=== PATIENT | male | born 1975 | race Caucasian/White ===

== ENCOUNTER 2022-05-31 15:30 | Emergency (ER) | payer BC ==
--- NOTE | 2022-05-31 16:31 | ED ---
General Adult HPI - General Chief complaint: Shortness of Breath Stated complaint: High BP-Sent by PCP Time Seen by Provider: 05/31/22 15:51 Source: patient Mode of arrival: ambulatory Limitations: no limitations - History of Present Illness Initial comments: Dictation was produced using [email or web address] dictation software. please excuse any grammatical, word or spelling errors. Chief Complaint: 46-year-old male presents to the emergency department for shortness of breath and hypertension History of Present Illness: Is a 46-year-old male who was sent in by his primary care physician, Dr. Cartagena. Briefly, patient is a 46-year-old male has been dealing with mild dyspnea for the last several days. He went to his primary care physician's office was found to have elevated blood pressure and shortness of breath he was given an IM injection of some sort of steroid and a breathing treatment with improvement of symptoms. Patient's been taking [id number] Primatene to treat his symptoms. He has no chest pain. Denies any orthopnea. Worse when he lies flat. He has no comorbidities. He does not take any medications on a regular basis. The ROS documented in this emergency department record has been reviewed and confirmed by me. Those systems with pertinent positive or negative responses have been documented in the HPI. All other systems are other negative and/or noncontributory. PHYSICAL EXAM: General Impression: Alert and oriented x3, not in acute distress HEENT: Normocephalic atraumatic, extra-ocular movements intact, pupils equal and reactive to light bilaterally, mucous membranes moist. Cardiovascular: Heart regular rate and rhythm Chest: Able to complete full sentences, no retractions, mild rhonchi Abdomen: abdomen soft, non-tender, non-distended, no organomegaly Musculoskeletal: Pulses present and equal in all extremities, no peripheral edema Motor: no focal deficits noted Neurological: CN II-XII grossly intact, no focal motor or sensory deficits noted Skin: Intact with no visualized rashes Psych: Normal affect and mood ED course: 46-year-old male sent in from primary care physician's office for hypertension and shortness of breath. Patient is very well appearing at the bedside. He has no high-risk features. Vital Signs upon arrival are within acceptable limits. Spoke with primary care physician who was concerned the patient is covered positive and that he should have a BNP drawn to evaluate for heart failure. Labs unremarkable. CBC, metabolic panel is unremarkable. BNP negative. For panel by PCR is negative. Chest x-ray shows mild hyperinflation suggesting asthma. Patient observed in emergency department for several hours. Reevaluated at 6:00 PM final be stable medical condition. Patient discharged. Given prescription for pro-air inhaler and Medrol Dosepak. - Related Data Previous Rx's Medication Instructions Recorded Albuterol Sulfate [Proair Hfa] 1 - 2 puff INHALATION Q6HR PRN 05/31/22 #8.5 gm methylPREDNISolone Dose Pack 4 mg PO DIRECTED #21 tab 05/31/22 [Medrol Dose Pack] Allergies Allergy/AdvReac Type Severity Reaction Status Date / Time No Known Allergies Allergy Verified 05/31/22 17:14 Review of Systems ROS Statement: Those systems with pertinent positive or pertinent negative responses have been documented in the HPI. ROS Other: All systems not noted in ROS Statement are negative. Past Medical History Past Medical History: Asthma History of Any Multi-Drug Resistant Organisms: None Reported Past Surgical History: No Surgical Hx Reported Past Psychological History: No Psychological Hx Reported Smoking Status: Former smoker Past Alcohol Use History: Daily Past Drug Use History: None Reported General Exam Limitations: no limitations Course Vital Signs 05/31/22 05/31/22 05/31/22 15:36 17:10 17:20 Temperature 98.0 F Pulse Rate 75 Respiratory 22 Rate Blood Pressure 157/100 159/109 156/95 O2 Sat by Pulse 99 Oximetry Medical Decision Making - Lab Data Result diagrams: 05/31/22 16:41 05/31/22 16:41 Lab Results 05/31/22 05/31/22 05/31/22 Range/Units 16:41 16:41 16:41 WBC 6.5 (3.8-10.6) k/uL RBC 4.66 (4.30-5.90) m/uL Hgb 16.1 (13.0-17.5) gm/dL Hct 47.0 (39.0-53.0) % MCV 100.9 H (80.0-100.0) fL MCH 34.5 (25.0-35.0) pg MCHC 34.2 (31.0-37.0) g/dL RDW 12.5 (11.5-15.5) % Plt Count 166 (150-450) k/uL MPV 7.4 Neutrophils % 78 % Lymphocytes % 10 % Monocytes % 7 % Eosinophils % 3 % Basophils % 1 % Neutrophils # 5.1 (1.3-7.7) k/uL Lymphocytes # 0.6 L (1.0-4.8) k/uL Monocytes # 0.5 (0-1.0) k/uL Eosinophils # 0.2 (0-0.7) k/uL Basophils # 0.0 (0-0.2) k/uL Sodium 138 (137-145) mmol/L Potassium 4.2 (3.5-5.1) mmol/L Chloride 97 L (98-107) mmol/L Carbon Dioxide 25 (22-30) mmol/L Anion Gap 16 mmol/L BUN 10 (9-20) mg/dL Creatinine 0.89 (0.66-1.25) mg/dL Est GFR (CKD-EPI)AfAm >90 (>60 ml/min/1.73 sqM) Est GFR (CKD-EPI)NonAf >90 (>60 ml/min/1.73 sqM) Glucose 86 (74-99) mg/dL Calcium 10.1 (8.4-10.2) mg/dL NT-Pro-B Natriuret Pep 35 pg/mL Influenza Type A (PCR) (Not Detectd) Influenza Type B (PCR) (Not Detectd) RSV (PCR) (Not Detectd) SARS-CoV-2 (PCR) (Not Detectd) 05/31/22 Range/Units 16:41 WBC (3.8-10.6) k/uL RBC (4.30-5.90) m/uL Hgb (13.0-17.5) gm/dL Hct (39.0-53.0) % MCV (80.0-100.0) fL MCH (25.0-35.0) pg MCHC (31.0-37.0) g/dL RDW (11.5-15.5) % Plt Count (150-450) k/uL MPV Neutrophils % % Lymphocytes % % Monocytes % % Eosinophils % % Basophils % % Neutrophils # (1.3-7.7) k/uL Lymphocytes # (1.0-4.8) k/uL Monocytes # (0-1.0) k/uL Eosinophils # (0-0.7) k/uL Basophils # (0-0.2) k/uL Sodium (137-145) mmol/L Potassium (3.5-5.1) mmol/L Chloride (98-107) mmol/L Carbon Dioxide (22-30) mmol/L Anion Gap mmol/L BUN (9-20) mg/dL Creatinine (0.66-1.25) mg/dL Est GFR (CKD-EPI)AfAm (>60 ml/min/1.73 sqM) Est GFR (CKD-EPI)NonAf (>60 ml/min/1.73 sqM) Glucose (74-99) mg/dL Calcium (8.4-10.2) mg/dL NT-Pro-B Natriuret Pep pg/mL Influenza Type A (PCR) Not Detected (Not Detectd) Influenza Type B (PCR) Not Detected (Not Detectd) RSV (PCR) Not Detected (Not Detectd) SARS-CoV-2 (PCR) Not Detected (Not Detectd) Disposition Clinical Impression: Asthma Disposition: HOME SELF-CARE Condition: Good Instructions (If sedation given, give patient instructions): Asthma (ED) Prescriptions: methylPREDNISolone Dose Pack [Medrol Dose Pack] 4 mg PO DIRECTED #21 tab Albuterol Sulfate [Proair Hfa] 1 - 2 puff INHALATION Q6HR PRN #8.5 gm PRN Reason: Dyspnea Is patient prescribed a controlled substance at d/c from ED?: No Referrals: Samantha Cartagena MD [Primary Care Provider] - 1-2 days Time of Disposition: 18:01
--- NOTE | 2022-05-31 16:56 | XR ---
EXAMINATION TYPE: XR chest 2V DATE OF EXAM: 05/31/2022 COMPARISON: None HISTORY: 46 year-old male shortness of breath, dyspnea TECHNIQUE: PA and lateral views FINDINGS: The cardiomediastinal silhouette, aorta, and pulmonary vasculature are within normal limits. There is hyperinflation. No consolidation or pleural effusion. IMPRESSION: Hyperinflation may relate to depth of inspiration or underlying asthma or emphysema. Clinically corre late. No focal infiltrate seen.
[2022-05-31 17:28] LABS: Basophils % (A) 1 %; Eosinophils # (A) 0.2 k/uL (0-0.7); Eosinophils % (A) 3 %; HGB 16.1 gm/dL (13.0-17.5); Lymphocytes # (A) 0.6 k/uL (1.0-4.8); Lymphocytes % (A) 10 %; MCH 34.5 pg (25.0-35.0); MCHC 34.2 g/dL (31.0-37.0); MCV 100.9 fL (80.0-100.0); Mean Platelet Volume 7.4; Monocytes # (A) 0.5 k/uL (0-1.0); Monocytes % (A) 7 %; Neutrophils # (A) 5.1 k/uL (1.3-7.7); Neutrophils % (A) 78 %; Platelet Count 166 k/uL (150-450); RBC 4.66 m/uL (4.30-5.90); RDW 12.5 % (11.5-15.5); WBC 6.5 k/uL (3.8-10.6)
[2022-05-31 17:48] LABS: African American GFR (CKD) >90 (>60 ml/min/1.73 sqM); Anion Gap 16 mmol/L; Blood Urea Nitrogen 10 mg/dL (9-20); Calcium 10.1 mg/dL (8.4-10.2); Carbon Dioxide 25 mmol/L (22-30); Chloride 97 mmol/L (98-107); Glucose 86 mg/dL (74-99); Non-African American GFR(CKD) >90 (>60 ml/min/1.73 sqM); Potassium 4.2 mmol/L (3.5-5.1); Sodium 138 mmol/L (137-145)
[2022-05-31 18:25] VITALS: BP 150/96; PULSE 70; RESP 18; TEMP 98.7
== END 2022-05-31 18:24 | disposition home or self-care (01) ==
LOC: EC 15:30
DX: J45.909 Unspecified asthma, uncomplicated (principal); I10 Essential (primary) hypertension; Z87.891 Personal history of nicotine dependence; Z79.51 Long term (current) use of inhaled steroids; Z79.899 Other long term (current) drug therapy; Z20.822 Contact with and (suspected) exposure to COVID-19
CPT/HCPCS: 36415; 71046; 80048; 83880; 85025; 87636; 93005; 99285